=== PATIENT | female | born 1965 | race Caucasian/White ===

== ENCOUNTER 2024-12-02 21:05 | Emergency (ER) | payer OTHER, SELFPAY ==
[2024-12-02 21:16] VITALS: BP 156/97; PULSE 94; TEMP 37.3; O2SAT 97; BMI 41.6
--- NOTE | 2024-12-02 21:29 | ED_ITS ---
HPI - Wound/Laceration General Chief Complaint: Wound/Laceration Stated Complaint: POST OP COMP Time Seen by Provider: 12/02/24 21:19 Source: patient Mode of arrival: Wheelchair Limitations: no limitations History of Present Illness HPI narrative: patient describes rupture diverticulitis 04/03 treated conservatively. Seen in follow up by surgery and one week ago at [facility] had surgery. felt she was recovering well until yesterday when she developed periumbilical pain. Patient appears to have had laproscopic surgical procedure. Now has drainage and increasing pain. No fever . No vomiting. Related Data Allergies Allergy/AdvReac Type Severity Reaction Status Date / Time No Known Drug Allergies Allergy Verified 12/02/24 21:56 Review of Systems ROS Status of ROS 10 or more systems reviewed and unremark able except as noted in history and below PFSH PFSH Social History Little interest or pleasure in doing things: not at all Feeling down, depressed, or hopeless: not at all Exam Constitutional Vital Signs, click to edit/add: Last Vital Signs Temp 99.1 F 12/02/24 21:16 Pulse 94 H 12/02/24 21:16 Resp 18 12/02/24 21:16 BP 156/97 H 12/02/24 21:16 Pulse Ox 97 12/02/24 21:16 O2 Del Method Room Air 12/02/24 21:16 Common normals: no apparent distress, average body habitus, oriented x3, no limitations, healthy appearing, alert and well nourished [facility] Common normals: normocephalic Eye Common normals: EOMs intact bilaterally and conjunctivae normal Respiratory Common normals: normal respiratory effort, no retractions, no use of accessory muscles and clear to auscultation bilaterally Cardio Common normals: regular rate, regular rhythm, S1 normal heart sound and S2 normal heart sound GI Other: has eli at incision RLQ that are clean and dry. No erythema. at the umbilicus there is mild erythema. sl. drainage and mod tenderness Extremity Common normals: normal to inspection and full ROM Neuro Common normals: oriented x3, CN's II-XII intact bilaterally, moves all extremities, no focal motor deficits and no sensory deficits noted Psych Appearance: grossly normal Course Vital Signs Vital signs: Vital Signs Temperature 99.1 F 12/02/24 21:16 Pulse Rate 94 H 12/02/24 21:16 Respiratory Rate 18 12/02/24 21:16 Blood Pressure 156/97 H 12/02/24 21:16 Pulse Oximetry 97 12/02/24 21:16 Oxygen Delivery Method Room Air 12/02/24 21:16 Temperature 99.1 F 12/02/24 21:16 Pulse Rate 94 H 12/02/24 21:16 Respiratory Rate 18 12/02/24 21:16 Blood Pressure 156/97 H 12/02/24 21:16 Pulse Oximetry 97 12/02/24 21:16 Oxygen Delivery Method Room Air 12/02/24 21:16 MDM - Wound/Laceration MDM Narrative Medical decision making narrative: abdominal surgery last week at [facility]. Presents complaining of increased pain and drainage from umbilical incision. Site tender-mod. No surrounding erythema. Patient with low grade temp and WBC elevated at 14. CT with post operative changes at the sigmoid with mild stranding and small foci of air related to recent surgery. No abscess Due to the pain , tenderness and low grade fever treated with antibiotics for now and advised to follow up with her surgeon Lab Data Labs: Lab Results 12/02/24 Range/Units 22:00 WBC 14.2 H (4.0-11.0) 10^3/uL RBC 4.20 (4.20-5.40) 10^6/uL Hgb 11.9 L (12.0-16.0) g/dL Hct 37.2 (36.0-48.0) % MCV 88.6 (81.0-99.0) fL MCH 28.3 (26.7-34.0) pg MCHC 32.0 (29.9-35.2) g/dL RDW 13.1 (11.0-15.0) % Plt Count 387 (150-450) 10^3/uL MPV 9.4 L (9.5-13.5) fL Neut % (Auto) 76.6 H (43.0-75.0) % Lymph % (Auto) 13.4 L (20.5-60.0) % [place] % (Auto) 7.5 (1.7-12.0) % Eos % (Auto) 1.8 (0.9-7.0) % Baso % (Auto) 0.3 (0.2-2.0) % Neut # (Auto) 10.9 H (1.4-6.5) 10^3/uL Lymph # (Auto) 1.9 (1.2-3.8) 10^3/uL [place] # (Auto) 1.1 H (0.3-0.8) 10^3/uL Eos # (Auto) 0.3 (0.0-0.7) 10^3/uL Baso # (Auto) 0.0 (0.0-0.1) 10^3/uL Abs Immat Gran (auto) 0.05 H (0.00-0.03) 10^3/uL Imm/Tot Granulo (auto) 0.4 (0.0-0.5) % Sodium 140 (136-145) mmol/L Potassium 4.2 (3.5-5.1) mmol/L Chloride 102 (98-107) mmol/L Carbon Dioxide 30.7 (21.0-32.0) mmol/L Anion Gap 11.5 BUN 16.0 (7.0-18.0) mg/dL Creatinine 0.91 (0.55-1.02) mg/dL Est GFR ( Amer) >60 (>=60 mL/min/1.73m^2) Est GFR (Non-Af Amer) >60 (>=60 mL/min/1.73m^2) BUN/Creatinine Ratio 17.6 Glucose 85 (74-106) mg/dL Lactate 1.6 (0.4-2.0) mmol/L Calcium 8.5 (8.5-10.1) mg/dL Total Bilirubin 0.3 (0.2-1.0) mg/dL AST 11 L (15-37) U/L ALT 20 (14-59) U/L Alkaline Phosphatase 73 (46-116) U/L Total Protein 7.4 (6.4-8.2) g/dL Albumin 3.1 L (3.4-5.0) g/dL Globulin 4.3 g/dL Albumin/Globulin Ratio 0.7 Discharge Plan Discharge Chief Complaint: Wound/Laceration Clinical Impression: Post-op pain Patient Disposition: Home, Self-Care Mode of Transportation: Private Vehicle Print Language: Taiwanese Instructions: Acute Wounds (ED) Additional Instructions: contact your surgeon tomorrow for close follow up Referrals: LINDSEY ROWE [Primary Care Provider] - 1 week
[2024-12-02] MEDS: 0.9 % SODIUM CHLORIDE 1,000 ML 999 ML IV (22:24)
[2024-12-02] MEDS: PIPERACILLIN SODIUM/TAZOBACTAM 3.375 GM in 0.9 % SODIUM CHLORIDE 50 ML IV (22:25)
[2024-12-02 22:29] LABS: Basophils Percent Auto 0.3 % (0.2-2.0); Eosinophils Absolute Auto 0.3 10^3/uL (0.0-0.7); Eosinophils Percent Auto 1.8 % (0.9-7.0); Hematocrit 37.2 % (36.0-48.0); Hemoglobin 11.9 g/dL (12.0-16.0); Immature Granulocytes Abs Auto 0.05 10^3/uL (0.00-0.03); Immature Granulocytes Pct Auto 0.4 % (0.0-0.5); Lymphocytes Absolute Auto 1.9 10^3/uL (1.2-3.8); Lymphocytes Percent Auto 13.4 % (20.5-60.0); Mean Corpuscular Hemoglobin 28.3 pg (26.7-34.0); Mean Corpuscular Volume 88.6 fL (81.0-99.0); Mean Platelet Volume 9.4 fL (9.5-13.5); Monocytes Absolute Auto 1.1 10^3/uL (0.3-0.8); Monocytes Percent Auto 7.5 % (1.7-12.0); Neutrophils Absolute Auto 10.9 10^3/uL (1.4-6.5); Neutrophils Percent Auto 76.6 % (43.0-75.0); Platelet Count 387 10^3/uL (150-450); Red Cell Distribution Width 13.1 % (11.0-15.0); White Blood Count 14.2 10^3/uL (4.0-11.0)
[2024-12-02 22:48] LABS: Alanine Aminotransferase 20 U/L (14-59); Albumin Globulin Ratio 0.7; Albumin Level 3.1 g/dL (3.4-5.0); Alkaline Phosphatase 73 U/L (46-116); Anion Gap 11.5; Aspartate Amino Transferase 11 U/L (15-37); BUN Creatinine Ratio 17.6; Bilirubin Total 0.3 mg/dL (0.2-1.0); Calcium 8.5 mg/dL (8.5-10.1); Carbon Dioxide 30.7 mmol/L (21.0-32.0); Chloride 102 mmol/L (98-107); Estimated GFR (African America >60 (>=60 mL/min/1.73m^2); Estimated GFR (Non-African Ame >60 (>=60 mL/min/1.73m^2); Globulin 4.3 g/dL; Glucose 85 mg/dL (74-106); Potassium 4.2 mmol/L (3.5-5.1); Sodium 140 mmol/L (136-145); Total Protein 7.4 g/dL (6.4-8.2)
[2024-12-02 22:50] LABS: Lactate/Lactic Acid 1.6 mmol/L (0.4-2.0)
[2024-12-03] MEDS: AMOXICILLIN/POT CLAV 875-125 MG TABLET 1 TAB PO (00:20)
[2024-12-03 00:35] VITALS: BP 148/80; PULSE 74; O2SAT 97
== END 2024-12-03 00:41 | disposition home or self-care (01) ==
PROVIDERS: Emergency Provider Internal Medicine; PCP Family Medicine
DX: G89.18 Other acute postprocedural pain (principal); R10.33 Periumbilical pain; Z98.890 Other specified postprocedural states
CPT/HCPCS: 36415; 74177; 80053; 83605; 85025; 87040; 96365; 99285; J2543; Q9967